=== PATIENT | male | born 1935 | race Caucasian/White ===

== ENCOUNTER 2021-04-23 12:57 | Emergency (ER) | payer OTHER ==
[2021-04-23 13:46] LABS: Absolute Lymphocytes (CBC) 1.5 K/uL (0.7-4.9); Basophils % 1.2 % (0-1.3); Hematocrit 36.9 % (39.6-49.0); Lymphocytes % 21.6 % (15.3-44.8); MPV 7.5 fL (7.6-11.3); RBC Red Blood Cell Count 4.07 M/uL (4.33-5.43)
--- NOTE | 2021-04-23 13:51 | RAD REPORT ---
EXAM DESCRIPTION: CT - Head Brain Wo Cont - 04/23/2021 1:43 pm CLINICAL HISTORY: SYNCOPE COMPARISON: No comparisons TECHNIQUE: All CT scans are performed using dose optimization technique as appropriate and may inclu de automated exposure control or mA/KV adjustment according to patient size. FINDINGS: No intracranial hemorrhage, hydrocephalus or extra-axial fluid collection.No areas of brai n edema or evidence of midline shift. The paranasal sinuses and mastoids are clear. The calvarium is intact. IMPRESSION: No acute intracranial abnormality.
[2021-04-23 13:53] LABS: Protime INR 0.97
[2021-04-23 14:08] LABS: ALT/SGPT 25 U/L (12-78); AST/SGOT 17 U/L (15-37); Alkaline Phosphatase 97 U/L (45-117); BUN Blood Urea Nitrogen 31 mg/dL (7-18); Bicarbonate 29 mmol/L (21-32); Bilirubin Direct < 0.1 mg/dL (0-0.2); Bilirubin Total 0.2 mg/dL (0.2-1.0); Creatine Phosphokinase 74 U/L (39-308); Glucose Level 106 mg/dL (74-106); Lipase 160 U/L (73-393); Magnesium 2.4 mg/dL (1.8-2.4); Potassium 4.5 mmol/L (3.5-5.1); Protein, Total 7.9 g/dL (6.4-8.2); Sodium Level 137 mmol/L (136-145); Troponin (Emerg Dept Use Only) < 0.02 ng/mL (0.0-0.045)
[2021-04-23 14:09] LABS: CKMB Creatine Kinase MB < 1.0 ng/mL (1.0-3.6)
[2021-04-23] MEDS ORDERED: NA CHLORIDE 0.9% 1,000 ML ONE (14:24)
[2021-04-23 15:13] LABS: Urine Blood Negative (Negative); Urine Glucose Negative (Negative); Urine Protein Negative (Negative)
--- NOTE | 2021-04-23 17:13 | RAD REPORT ---
EXAM DESCRIPTION: MRI - Brain Wo Cont - 04/23/2021 5:03 pm CLINICAL HISTORY: DIZZINESS COMPARISON: Head Brain Wo Cont dated 04/23/2021 TECHNIQUE: Sagittal T1-weighted images were obtained along with PD/heavily T2-weighted and T2-FLAIR images. Axial DWI and ADC mapping sequences were also obtained along with coronal heavily T2-weighted images were obtained. FINDINGS: No intracranial hemorrhage, mass or acute infarction. There is no edema or shift of midlin e structures. No extra-axial fluid collections. Wilson-matter/white matter junction is preserved. Signa l voids are seen as a normal finding in the major intracranial vessels. Mastoid air cells and paranasal sinuses are clear. IMPRESSION: No acute intracranial abnormality.
--- NOTE | 2021-04-23 17:15 | EDPHYS ---
Physician Documentation [facility] Name: Zeke Almonte Age: 86 yrs Sex: Male : 1935 Arrival Date: 04/23/2021 Time: 12:59 Bed 8 Private MD: ED Physician Saul Everett HPI: 04/23 17:43 This 86 yrs old Male presents to ER via EMS with complaints of dizziness. kb 17:43 The patient presents with dizziness, lightheadedness. Onset: The symptoms/episode kb began/occurred just prior to arrival. Context: occurred outdoors, occurred while the patient was standing, just prior to the episode the patient experienced no apparent symptoms. Modifying factors: The symptoms are alleviated by nothing, the symptoms are aggravated by nothing. Associated signs and symptoms: The patient has no apparent associated signs or symptoms. Severity of symptoms: At their worst the symptoms were moderate in the emergency department the symptoms have resolved. Patient's baseline: Neuro: alert and fully oriented, Motor: no deficits, Ambulation: walks without assistance, Speech: normal. The patient has not experienced similar symptoms in the past. The patient has not recently seen a physician. Pt reports he was pulling the boat around the dock and got lightheaded. States he lowered himself to the ground, but everytime he tried to get up he would get dizzy/lightheaded. STates he tried for about 30 minutes and didn't get better so they called 911. States he was feeling a little better when EMS arrived and symptoms resolved prior to arrival at ED. Historical: - Allergies: 13:12 No Known Allergies; jl7 - Home Meds: 13:12 ropinirole oral [Active]; jl7 13:21 baclofen 10 mg oral tab [Active]; donepezil 10 mg oral tab [Active]; simvastatin 80 mg jl7 oral tab [Active]; trazodone 50 mg oral tab [Active]; primidone 50 mg Oral tab [Active]; telmisartan 80 mg oral tab 1 tab once daily [Active]; - PMHx: 13:12 Hypertensive disorder; Restless Leg Syndrome; High cholesterol; jl7 - Immunization history:: Adult Immunizations up to date, Client reports receiving the 2nd dose of the Covid vaccine, Moderna. - Social history:: Smoking status: Patient denies any tobacco usage or history of. ROS: 17:42 Constitutional: Negative for fever, chills, and weight loss. kb 17:42 Neuro: Positive for dizziness, lightheadedness. 17:42 All other systems are negative. Exam: 17:43 Constitutional: This is a well developed, well nourished patient who is awake, alert, kb and in no acute distress. Head/Face: Normocephalic, atraumatic. Eyes: Pupils equal round and reactive to light, extra-ocular motions intact. Lids and lashes normal. Conjunctiva and sclera are non-icteric and not injected. Cornea within normal limits. Periorbital areas with no swelling, redness, or edema. ENT: Moist Mucous membranes Cardiovascular: Regular rate and rhythm with a normal S1 and S2. No gallops, murmurs, or rubs. No pulse deficits. Respiratory: Respirations even and unlabored. No increased work of breathing, no retractions or nasal flaring. Abdomen/GI: Soft, non-tender. No distention Skin: Warm, dry with normal turgor. Normal color. MS/ Extremity: Pulses equal, no cyanosis. Neurovascular intact. Full, normal range of motion. Neuro: Awake and alert, GCS 15, oriented to person, place, time, and situation. Moves all extremities. Normal gait. Psych: Awake, alert, with orientation to person, place and time. Behavior, mood, and affect are within normal limits. Vital Signs: 12:53 BP 107 / 48 LA Sitting; Pulse 49; jl7 13:00 BP 107 / 48 LA Sitting; Pulse 49; Resp 15; Temp 97.1(O); Pulse Ox 100% on R/A; Weight jl7 80.74 kg; Height 5 ft. 8 in. (172.72 cm); Pain 0/10; 13:00 BP 95 / 50 RA Sitting; jl7 13:01 BP 102 / 45 LA Supine; Pulse 56; jl7 13:02 BP 101 / 41 LA Standing; Pulse 55; jl7 14:00 BP 110 / 46; Pulse 53; Resp 18; Pulse Ox 100% ; bp 15:00 BP 124 / 51; Pulse 50; Resp 15; Pulse Ox 100% ; bp 16:00 BP 132 / 59; Pulse 51; Resp 15; Pulse Ox 100% ; bp 17:00 BP 127 / 59; Pulse 49; Resp 15; Pulse Ox 100% ; bp 13:00 Body Mass Index 27.06 (80.74 kg, 172.72 cm) jl7 MDM: 13:27 Patient medically screened. kb 17:43 Data reviewed: vital signs, nurses notes. Data interpreted: Pulse oximetry: on room air kb is 100 %. Interpretation: normal. Counseling: I had a detailed discussion with the patient and/or guardian regarding: the historical points, exam findings, and any diagnostic results supporting the discharge/admit diagnosis, lab results, radiology results, the need for outpatient follow up, a family practitioner, a neurologist, to return to the emergency department if symptoms worsen or persist or if there are any questions or concerns that arise at home. 04/23 13:27 Order name: Basic Metabolic Panel; Complete Time: 14:14 kb 04/23 13:27 Order name: CBC with Diff; Complete Time: 13:51 kb 04/23 13:27 Order name: CPK; Complete Time: 14:14 kb 04/23 13:27 Order name: Ckmb; Complete Time: 14:14 kb 04/23 13:27 Order name: Hepatic Function; Complete Time: 14:14 kb 04/23 13:27 Order name: Lipase; Complete Time: 14:14 kb 04/23 13:27 Order name: Magnesium; Complete Time: 14:14 kb 04/23 13:27 Order name: Protime (+inr); Complete Time: 14:04 kb 04/23 13:27 Order name: Ptt, Activated; Complete Time: 14:04 kb 04/23 13:27 Order name: Troponin (emerg Dept Use Only); Complete Time: 14:14 kb 04/23 13:27 Order name: CT Head Brain wo Cont; Complete Time: 13:51 kb 04/23 14:57 Order name: MRI - Brain Wo Cont; Complete Time: 17:14 kb 04/23 15:13 Order name: Urine Dipstick-Ancillary; Complete Time: 15:14 EDMS 04/23 13:27 Order name: EKG; Complete Time: 13:27 kb 04/23 13:27 Order name: Cardiac monitoring; Complete Time: 13:31 kb 04/23 13:27 Order name: EKG - Nurse/Tech; Complete Time: 13:34 kb 04/23 13:27 Order name: IV Saline Lock; Complete Time: 14:03 kb 04/23 13:27 Order name: Labs collected and sent; Complete Time: 14:03 kb 04/23 13:27 Order name: NPO; Complete Time: 13:31 kb 04/23 13:27 Order name: O2 Per Protocol; Complete Time: 13:31 kb 04/23 13:27 Order name: O2 Sat Monitoring; Complete Time: 13:31 kb 04/23 13:27 Order name: Urine Dipstick-Ancillary (obtain specimen); Complete Time: 15:15 kb 04/23 13:27 Order name: Orthostatics; Complete Time: 13:31 kb Administered Medications: 14:03 Drug: NS 0.9% 1000 ml Route: IV; Rate: 1000 ml; Site: right antecubital; jl7 15:00 Follow up: Response: No adverse reaction; IV Status: Completed infusion; IV Intake: jl7 1000ml Disposition: 04/24 17:00 Co-signature as Attending Physician, Saul Everett MD I agree with the assessment and kdr plan of care. Disposition Summary: 04/23/21 17:14 Discharge Ordered Location: Home kb Condition: Stable kb Diagnosis - Dizziness and giddiness kb Followup: kb - With: Emergency Department - When: As needed - Reason: Worsening of condition Followup: kb - With: Private Physician - When: 2 - 3 days - Reason: Recheck today's complaints, Continuance of care, Re-evaluation by your physician Discharge Instructions: - Discharge Summary Sheet kb - Near-Syncope, [id number] kb - Vertigo, Qawj-ar-Wvyl kb - Dizziness, Pqim-hj-Izyh kb Forms: - Medication Reconciliation Form kb - Thank You Letter kb - Antibiotic Education kb - Prescription Opioid Use kb Signatures: Dispatcher [employer] EDMS Natalia Purvis, CONTENT MANAGER-C CHAGO-Saul Baker MD MD kdr Leal, Jahala, RN RN jl7 Corrections: (The following items were deleted from the chart) 04/23 13:23 13:12 Home Meds: Baclofen Oral; jl7 jl7 13:23 13:12 Home Meds: donepezil oral; jl7 jl7 13:23 13:12 Home Meds: Simvastatin Oral; jl7 jl7 13:23 13:12 Home Meds: Trazodone Oral; jl7 jl7 13:23 13:12 Home Meds: unknown BP medication; jl7 jl7
--- NOTE | 2021-04-23 17:15 | ER ---
Nurse's Notes [facility] Name: Zeke Almonte Age: 86 yrs Sex: Male : 1935 Arrival Date: 04/23/2021 Time: 12:59 Bed 8 Private MD: Diagnosis: Dizziness and giddiness Presentation: 04/23 13:00 Chief complaint: Patient states: Getting ready to go fishing and got lightheaded, laid jl7 down and tried to get up again and was still lightheaded so called 911. EMS arrival pt BP 76/42, HR 63; no interventions and PT BP just prior to arrival at ER 101/59, HR 55. 13:00 Method Of Arrival: EMS: [facility] 7 13:00 Coronavirus screen: At this time, the client does not indicate any symptoms associated jl7 with coronavirus-19. Ebola Screen: No symptoms or risks identified at this time. Initial Sepsis Screen: Does the patient meet any 2 criteria? No. Patient's initial sepsis screen is negative. Does the patient have a suspected source of infection? No. Patient's initial sepsis screen is negative. Risk Assessment: Do you want to hurt yourself or someone else? Patient reports no desire to harm self or others. Onset of symptoms was April 23, 2021. Care prior to arrival: None. 13:00 Acuity: WM 3 jl7 Triage Assessment: 13:00 General: Appears in no apparent distress. uncomfortable, Behavior is calm, cooperative, jl7 appropriate for age. Pain: Denies pain. EENT: No signs and/or symptoms were reported regarding the EENT system. Neuro: Level of Consciousness is awake, alert, obeys commands, Oriented to person, place, time, situation, Moves all extremities. Full function Speech is normal. Cardiovascular: Heart tones S1 S2 present Patient's skin is warm and dry. Rhythm is sinus bradycardia. Respiratory: Airway is patent Respiratory effort is even, unlabored, Respiratory pattern is regular, symmetrical, Breath sounds are clear bilaterally. GI: No signs and/or symptoms were reported involving the gastrointestinal system. : No signs and/or symptoms were reported regarding the genitourinary system. Derm: Skin is pink, warm \T\ dry. Historical: - Allergies: 13:12 No Known Allergies; jl7 - Home Meds: 13:12 ropinirole oral [Active]; jl7 13:21 baclofen 10 mg oral tab [Active]; donepezil 10 mg oral tab [Active]; simvastatin 80 mg jl7 oral tab [Active]; trazodone 50 mg oral tab [Active]; primidone 50 mg Oral tab [Active]; telmisartan 80 mg oral tab 1 tab once daily [Active]; - PMHx: 13:12 Hypertensive disorder; Restless Leg Syndrome; High cholesterol; jl7 - Immunization history:: Adult Immunizations up to date, Client reports receiving the 2nd dose of the Covid vaccine, Moderna. - Social history:: Smoking status: Patient denies any tobacco usage or history of. Screenin:00 Abuse screen: Denies threats or abuse. Denies injuries from another. Nutritional bp screening: No deficits noted. Tuberculosis screening: No symptoms or risk factors identified. Fall Risk None identified. Assessment: 13:00 General: SEE TRIAGE NOTE. bp 14:00 Reassessment: No changes from previously documented assessment. Patient and/or family bp updated on plan of care and expected duration. Pain level reassessed. 16:00 Reassessment: No changes from previously documented assessment. Patient and/or family bp updated on plan of care and expected duration. Pain level reassessed. PT TO CT. 17:00 Reassessment: No changes from previously documented assessment. Patient and/or family bp updated on plan of care and expected duration. Pain level reassessed. PT RETURNED FROM CT. Vital Signs: 12:53 BP 107 / 48 LA Sitting; Pulse 49; jl7 13:00 BP 107 / 48 LA Sitting; Pulse 49; Resp 15; Temp 97.1(O); Pulse Ox 100% on R/A; Weight [facility] 80.74 kg; Height 5 ft. 8 in. (172.72 cm); Pain 0/10; 13:00 BP 95 / 50 RA Sitting; 7 13:01 BP 102 / 45 LA Supine; Pulse 56; jl7 13:02 BP 101 / 41 LA Standing; Pulse 55; jl7 14:00 BP 110 / 46; Pulse 53; Resp 18; Pulse Ox 100% ; bp 15:00 BP 124 / 51; Pulse 50; Resp 15; Pulse Ox 100% ; bp 16:00 BP 132 / 59; Pulse 51; Resp 15; Pulse Ox 100% ; bp 17:00 BP 127 / 59; Pulse 49; Resp 15; Pulse Ox 100% ; bp 13:00 Body Mass Index 27.06 (80.74 kg, 172.72 cm) jl7 ED Course: 12:59 Patient arrived in ED. ds1 13:00 Arm band placed on right wrist. jl7 13:08 Farooq Jonh, RN is Primary Nurse. jl7 13:08 Patient has correct armband on for positive identification. Bed in low position. Call mh5 light in reach. Side rails up X2. Warm blanket given. director of rooms on. Pulse ox on. NIBP on. 13:12 Triage completed. jl7 13:26 Natalia Purvis [facility]-C [facility]. kb 13:26 Saul Everett MD is Attending Physician. kb 13:35 EKG done, by ED staff, reviewed by Saul Everett MD. 5 13:43 CT Head Brain wo Cont In Process Unspecified. EDMS 13:58 Initial lab(s) drawn, by ED staff, sent to lab. EKG done. 5 17:03 MRI - Brain Wo Cont In Process Unspecified. EDMS 17:40 No provider procedures requiring assistance completed. IV discontinued, intact, jl7 bleeding controlled, No redness/swelling at site. Pressure dressing applied. Administered Medications: 14:03 Drug: NS 0.9% 1000 ml Route: IV; Rate: 1000 ml; Site: right antecubital; jl7 15:00 Follow up: Response: No adverse reaction; IV Status: Completed infusion; IV Intake: jl7 1000ml Intake: 15:00 IV: 1000ml; Total: 1000ml. jl7 Outcome: 17:14 Discharge ordered by . kb 17:40 Discharged to home via wheelchair, with family. jl7 17:40 Condition: stable 17:40 Discharge instructions given to patient, Instructed on discharge instructions, follow up and referral plans. Demonstrated understanding of instructions, follow-up care. 17:48 Patient left the ED. jl7 Signatures: Dispatcher [employer] EDMS Natalia Purvis FNP-C FNP-Ethel Clark ds1 Dannielle Nuñez 5 Farooq John, RN RN jl7 Tobin Munroe RN RN bp Corrections: (The following items were deleted from the chart) 13:23 13:12 Home Meds: Baclofen Oral; jl7 jl7 13:12 Home Meds: donepezil oral; jl7 jl7 13:12 Home Meds: Simvastatin Oral; jl7 jl7 13:12 Home Meds: Trazodone Oral; jl7 jl7 13:12 Home Meds: unknown BP medication; jl7 jl7
[2021-04-23 17:53] VITALS: TEMP 97.1; O2SAT 100
[2021-04-23 18:00] VITALS: BP 127/59
== END 2021-04-23 17:48 | disposition home or self-care (01) ==
LOC: ER 12:57
DX: R42 Dizziness and giddiness (principal); I10 Essential (primary) hypertension; E78.00 Pure hypercholesterolemia, unspecified
CPT/HCPCS: 93005; 85025; 80048; 36415; 83735; 82550; 85610; 80076; 85730; 81003; 84484; 82553; 83690; 70450; 70551; 96360; 99285; J7030